=== PATIENT | female | born 1955 ===

== ENCOUNTER 2023-04-30 10:19 | Inpatient (IN) | payer OTHER ==
[~2023-04-30] VITALS: Ht 170.2 cm; Wt 60.8 kg
[2023-04-30] MEDS ORDERED: NORVASC10 MG PO (10:55)
[2023-04-30] MEDS ORDERED: LISINOPRIL10 MG PO (10:55)
[2023-05-08] MEDS ORDERED: HYOSCYAMINE0.125 M1 SL (13:44)
[2023-05-08] MEDS ORDERED: POLY119PG PO (13:44)
[2023-05-08] MEDS ORDERED: GABAPENTIN300 MG PO (13:44)
[2023-05-08] MEDS ORDERED: PAIN RELIEVER500 M2 PO (13:44)
== END 2023-05-08 15:27 | disposition home or self-care (01) | DRG 330 ==
LOC: O/R 05-05 07:05 → SURG 05-05 12:30 → SURH 05-05 18:48
PROVIDERS: ADMIT Surgery; ATTEND Surgery
PROC: 0DBP4ZZ Excision of Rectum, Percutaneous Endoscopic Approach (ICD-10-PCS; 2023-05-05)
PROC: 07BC4ZZ Excision of Pelvis Lymphatic, Percutaneous Endoscopic Approach (ICD-10-PCS; 2023-05-05)
PROC: 0DJD8ZZ Inspection of Lower Intestinal Tract, Via Natural or Artificial Opening Endoscopic (ICD-10-PCS; 2023-05-05)
PROC: 0DTN4ZZ Resection of Sigmoid Colon, Percutaneous Endoscopic Approach (ICD-10-PCS; principal; 2023-05-05 13:30)
DX: C18.7 Malignant neoplasm of sigmoid colon (principal); K62.5 Hemorrhage of anus and rectum; R59.0 Localized enlarged lymph nodes; I11.9 Hypertensive heart disease without heart failure; J44.9 Chronic obstructive pulmonary disease, unspecified